=== PATIENT | female | born 1965 | race African-American/Black ===

== ENCOUNTER 2017-02-19 11:25 | Observation (INO) ==
--- NOTE | 2017-02-19 11:53 | XRay Report ---
XR wrist 3V LT Indication: Fall, pain and deformity to wrist Comparison: None Technique: Frontal, lateral, and oblique views of the right wrist Findings: Acute, moderately displaced fracture through the distal radial metaphysis. There is mild comminution. There is moderate volar apex angulation. Acute, mildly displaced ulnar styloid fracture noted. Surrounding soft tissue swelling demonstrated. IMPRESSION: As above. PROCEDURE INTERPRETED AT [facility] DEPARTMENT OF RADIOLOGY Final Report Signed by: Dr Khris Duenas
[2017-02-19] MEDS ORDERED: HYDROmorphone 2 MG/1 ML VIAL ONE (11:58)
[2017-02-19] MEDS ORDERED: ONDANSETRON 4 MG/2 ML VIAL ONE ×2 (11:58→15:44)
--- NOTE | 2017-02-19 12:48 | Orthopedic History & Physical ---
Assessment and Plan (1) Distal radius fracture, left Status: Acute Assessment and plan: Explained to fracture to the patient and family in detail. I recommended open reduction internal fixation to improve alignment. Risks and benefits were discussed in great detail, they voiced understanding and desired to proceed. Risks, alternatives, and benefits to undergoing this procedure were discussed in great detail, the patient voiced understanding desire proceed. Risks discussed included, but were not limited to, bleeding, infection, damage to arteries and nerves, nonunion, malunion, need for revision surgery, as well as medical complications. She states she does have diabetes, she takes insulin intermittently. I did discuss the fact that elevated blood sugars would place her at increased risk of infection and nonunion. We will proceed with fixation of the fracture today. Current Visit: Yes Qualifiers: Encounter type: initial encounter Fracture type: closed Fracture morphology: Bronwyn' Qualified Code(s): S52.532A - Colles' fracture of left radius, initial encounter for closed fracture History of Present Illness Chief complaint: Left wrist pain History of present illness: Ms. Zepeda is a 51 year old female had a fall earlier today while riding a [employer]line board. She fell backwards landed onto an outstretched left arm. She had immediate pain and deformity. She is brought here to the emergency department for evaluation. She was noted to have displaced distal radius fracture. She will complains of pain left wrist. She states she has some numbness in the left thumb Allergies Allergy/AdvReac Type Severity Reaction Status Date / Time No Known Allergies Allergy Unverified 02/02/16 14:59 12 point system: reviewed and no additional remarkable complaints except as stated Medical,Surgical,& Family Hx - Surgical History Abdominal Surgeries: Patient denies: Splenectomy - Social History Smoking Status: Never smoker Frequency of Alcohol Use: None Type of Drug Use: None Exam - Constitutional Vitals: Period Temp Pulse Resp BP Sys/Minor Pulse Ox Last 24 Hr 97.1 F 96 20 157/91 97 Exam: General appearance: no acute distress Head exam: normal inspection Eye exam: EOMI Neck exam: normal inspection Respiratory exam: clear to auscultation bilaterally Cardiovascular exam: regular GI/Abdominal exam: normal bowel sounds Left upper extremity: Obvious deformity of the left wrist. She can wiggle her fingers and thumb. Discussed decreased sensation in the superficial radial nerve distribution. Median sensation is intact. She is nontender in the elbow. She has good pulses and brisk cap refill. Results - Diagnostic Findings Procedure: X-ray: image reviewed by me (Dorsally displaced, comminuted distal radius fracture with associated ulnar styloid avulsion)
[2017-02-19] MEDS ORDERED: GABAPENTIN 100 MG CAPSULE ONE (13:37)
[2017-02-19] MEDS ORDERED: ACETAMINOPHEN 500 MG TABLET ONE (13:37)
[2017-02-19] MEDS ORDERED: GABAPENTIN 300 MG CAPSULE ONE (13:37)
--- NOTE | 2017-02-19 14:02 | Emergency Department Note ---
Arnel Ruano Hilary, am scribing for, and in the presence of, Dat Bernal MD 11:48. Dolores Ruano Phillip K, MD, personally performed the services described in this documentation, ascribed by Jasmine Seals in my presence, and it is both accurate and complete . Arrival - Arrival Chief Complaint: Extremity Injury Stated Complaint: fell left wrist ED Nursing Triage Note: Left wrist pain - fall from hover board - deformity noted + radial pulse Mode of Arrival: Wheelchair Limitations: No Limitations Source: Patient, RN Notes Reviewed - History of Present Illness HPI Narrative: Pt is a 51 y/o female presenting to the ED with c/o left wrist pain s/p a fall on a hover board. Pt confirms pain but denies any other injuries. No other complaints or problems stated in the ED. Onset (ago): minute(s) Date of Last Menstrual Period: hyster Allergies/Adverse Reactions: Allergies Allergy/AdvReac Type Severity Reaction Status Date / Time No Known Allergies Allergy Unverified 02/02/16 14:59 Review of System - Review of System 12 point system: reviewed and no additional remarkable complaints except as stated - Review of System Constitutional: Absent: fever Musculoskeletal: Present: arm pain (left wrist pain) Medical,Surgical,& Family Hx - Surgical History Abdominal Surgeries: Patient denies: Splenectomy - Social History Smoking Status: Never smoker Frequency of Alcohol Use: None Type of Drug Use: None Exam Vital Signs: Vital Signs Temperature 97.1 F L 02/19/17 11:28 Pulse Rate 96 H 02/19/17 11:28 Respiratory Rate 20 02/19/17 11:28 Blood Pressure 157/91 02/19/17 11:28 O2 Sat by Pulse Oximetry 97 02/19/17 11:28 - General General appearance: alert, in no apparent distress - Head Head exam: Present: atraumatic, normocephalic - Eye Eye exam: Present: normal appearance, PERRL, EOMI - ENT ENT exam: Present: mucous membranes moist, TM's normal bilaterally. Absent: mucous membranes dry - Neck Neck exam: Present: full ROM, trachea midline. Absent: tenderness - Chest Chest inspection: Present: symmetric chest wall rise. Absent: tenderness - Respiratory Respiratory exam: Present: normal lung sounds bilaterally. Absent: respiratory distress - Cardiovascular Cardiovascular exam: Present: regular rate, normal rhythm, normal heart sounds. Absent: murmur, rubs, gallop - Abdominal Exam Abdominal exam: Present: soft, normal bowel sounds. Absent: distention, tenderness - Extremities Exam Extremities exam: Present: tenderness (left wrist deformity and swelling). Absent: full ROM - Back Exam Back exam: Present: full ROM. Absent: tenderness - Neurological Exam Neurological exam: Present: alert, oriented X3, CN II-XII intact. Absent: motor sensory deficit - Psychiatric Psychiatric exam: Present: normal affect, normal mood - Skin Skin exam: Present: warm, dry, intact, normal color. Absent: rash Course Course Narrative: Patient discussed with Dr. Hansen. Results - Diagnostic Findings Procedure: X-ray: report reviewed by me (Left wrist: Acute, moderately displaced fracture through the distal radial metaphysis. There is mild communution. There is moderate volar apex angultion. ) Disposition Clinical Impression: Displaced fracture of distal end of right radius Case discussed with: patient
[2017-02-19] MEDS ORDERED: PROPOFOL 200 MG/20 ML VIAL IV ONE (15:44)
[2017-02-19] MEDS ORDERED: LIDOCAINE 1% 5 ML VIAL ONE (15:44)
[2017-02-19] MEDS ORDERED: KETOROLAC 15 MG/1 ML VIAL IV PRN (16:44)
[2017-02-19] MEDS ORDERED: MORPHINE 2 MG/1 ML SYRINGE IV PRN (16:44)
[2017-02-19] MEDS ORDERED: NALOXONE 0.4 MG/ML VIAL IV PRN (16:44)
[2017-02-19] MEDS ORDERED: ONDANSETRON 4 MG/2 ML VIAL IV PRN ×2 (16:44→16:59)
[2017-02-19] MEDS ORDERED: MAGNESIUM HYDROXIDE SUSP 30 ML UDCUP PO PRN (16:44)
[2017-02-19] MEDS ORDERED: ACETAMINOPHEN 325 MG TABLET PO PRN (16:44)
[2017-02-19] MEDS ORDERED: fentaNYL 100 MCG/2 ML VIAL ONE ×2 (16:58→16:59)
[2017-02-19] MEDS ORDERED: SEVOFLURANE 1 UNIT/15 MINUTE INH ONE (16:58)
[2017-02-19] MEDS ORDERED: ePHEDrine 50 MG/ML AMP ONE (16:59)
[2017-02-19] MEDS ORDERED: MIDAZOLAM 2 MG/2 ML VIAL ONE (16:59)
[2017-02-19] MEDS ORDERED: HYDROmorphone 2 MG/1 ML VIAL IV PRN (16:59)
[2017-02-19] MEDS ORDERED: LACTATED RINGERS 1,000 ML IV ONE (16:59)
[2017-02-19] MEDS ORDERED: MORPHINE PCA 30 MG/30 ML SYRINGE IV SCH (17:00)
[2017-02-19] MEDS ORDERED: MEPERIDINE 25 MG/1 ML VIAL ONE (17:06)
[2017-02-19] MEDS: MEPERIDINE 25 MG/1 ML VIAL IV PRN ×2 (17:06→17:16)
[2017-02-19] MEDS ORDERED: MORPHINE PCA 30 MG/30 ML SYRINGE IV ONE (17:20)
--- NOTE | 2017-02-19 18:06 | XRay Report ---
XR wrist 2V LT Indication: Intraoperative C-arm fluoroscopy. Comparison: None. Technique: A total of 3 were obtained intraoperatively using C-arm fluoroscopy. Findings: Images were reviewed and deemed satisfactory by the operative physician. Total fluoroscopy time was 8.4 seconds. Impression: 1. C-arm usage as detailed. 02/19/2017 6:02 PM PROCEDURE INTERPRETED AT [facility] DEPARTMENT OF RADIOLOGY Final Report Signed by: Dr. Juan Carlos Hill
--- NOTE | 2017-02-19 19:23 | Anesthesia Post-Op ---
Anesthesia Post OP - Post Ansesthetic Evaluation Patient seen in post op: Yes Resp: within normal limits CV: within normal limits Mental: within normal limits Temp: within normal limits [id number]-[id number]: within normal limits Nausea and Vomiting: within normal limits Pain: within normal limits
[2017-02-19] MEDS: SODIUM CHLORIDE 0.9% 1,000 ML IV SCH (20:25)
[2017-02-19] MEDS: ACETAMINOPHEN 500 MG TABLET PO SCH (21:34)
[2017-02-20] MEDS: ACETAMINOPHEN 500 MG TABLET PO SCH ×4 (02:17→14:24)
[2017-02-20] MEDS: SODIUM CHLORIDE 0.9% 1,000 ML IV SCH ×2 (06:49→14:24)
[2017-02-20] MEDS ORDERED: PROMETHAZINE 25 MG/1 ML VIAL IM PRN (09:41)
[2017-02-20 11:36] VITALS: BP 97/55
--- NOTE | 2017-02-20 12:16 | Discharge Summary ---
Hospital Course - Hospital Course Hospital Course: 51-year-old female is brought to the hospital for management of distal radius fracture, she underwent fixation of the fracture difficulty transferred for stable condition postoperatively. She did well overnight and was discharged home the next morning. Time of discharge her splint was clean and dry. She can flex and extend the fingers and her thumb. She had some slight tingling in her thumb which was present preoperatively. Diagnosis - Discharge Diagnosis (1) Distal radius fracture, left Status: Acute Specialty Discharge - Follow Up or Referrals Follow up with: Nicolas Hansen MD [Physician] - Discharge Plan - Discharge Data Disposition: Disch To Home/Self Care Condition at Discharge: Stable Discharge Diet: advance to your usual diet Activity: no lifting Hygiene: keep area(s) dry Weight Bearing at Discharge: non-weight bearing Driving: not until seen by doctor Contact your physician if you experience:: fever over 101, Difficulty voiding, Redness or swelling, Nausea/Vomiting, Shortness of breath, Bleeding, pain uncontrolled by pain medications Wound / Dressing Care Instructions: Keep splint clean and dry - Discharge Medications New HYDROcodone/ACETAMIN 7.5-325 [[place] 7.5-325] 1 - 2 tablet PO Q4H PRN #40 tablet PRN Reason: Pain Moderate (4-7) Acetaminophen Tab [Tylenol Tab] 650 mg PO Q6H PRN tablet PRN Reason: Pain Mild (1-3) - Follow Up or Referral Follow Up: Nicolas Hansen MD [Physician] - (10-14 days) - Forms/Instructions Instructions: Open Reduction and Internal Fixation of an Arm Fracture (DC) Additional Discharge Instructions: Elevate left hand above heart level. 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 Exam - Constitutional Vitals: Period Temp Pulse Resp BP Sys/Minor Pulse Ox Last 24 Hr 96.7 F-97.6 F 63-98 16-20 108-159/43-91 91-100 DS: Provider Discharging clinician: Nicolas Hansen MD
== END 2017-02-20 15:00 | disposition home or self-care (01) ==
LOC: N.ED 11:25 → N.3E 13:05 → N.SDSINP 13:07 → N.3E 15:45
PROVIDERS: ADMIT Orthopaedic Surgery; ATTEND Orthopaedic Surgery